=== PATIENT | female | born 1975 | race Two or more races ===

== ENCOUNTER 2017-08-28 07:09 | Day surgery (SDC) | payer OTHER ==
[2017-08-28] MEDS ORDERED: POLY119PG PO (11:03)
[2017-08-28] MEDS ORDERED: ZOFRAN ODT4 MG PO (11:03)
[2017-08-28] MEDS ORDERED: ULTRACET PO (11:03)
== END 2017-08-28 13:30 | disposition home or self-care (01) ==
LOC: CIR.AMB 07:09
DX: K80.10 Calculus of gallbladder with chronic cholecystitis without obstruction (principal); K42.9 Umbilical hernia without obstruction or gangrene

== ENCOUNTER 2017-10-27 06:46 | Day surgery (SDC) | payer OTHER ==
[~2017-10-27 06:46] MED LIST: POLY119PG PO; ULTRACET PO; ZOFRAN ODT4 MG PO
== END 2017-10-27 13:00 | disposition home or self-care (01) ==
LOC: CIR.AMB 06:46
DX: N93.8 Other specified abnormal uterine and vaginal bleeding (principal)